=== PATIENT | male | born 1950 | race Caucasian/White ===

== ENCOUNTER 2017-12-30 06:35 | Day surgery (SDC) | payer MEDICARE, BC ==
[2017-12-30] MEDS ORDERED: Sodium Chloride 0.9% 1,000 ML IV SCH (07:15)
[2017-12-30] MEDS ORDERED: fentaNYL 100 MCG/2 ML SDV ONE (07:36)
[2017-12-30] MEDS ORDERED: Propofol 200 MG/20 ML SDV ONE (07:36)
[2017-12-30] MEDS ORDERED: Midazolam 1 MG/ML 2 ML SDV ONE (07:37)
--- NOTE | 2017-12-30 10:50 | PROC ---
DATE OF PROCEDURE: 12/30/2017 INDICATION: Billy is a 67-year-old male who comes in for a colonoscopy. The risks and benefits were explained to the patient, and he was taken to the OR. DESCRIPTION OF PROCEDURE: Anesthesia was given by nurse case preparer and liner. During the procedure, we used 2 versed, 100 fentanyl, and 70 mg of propofol. The Olympus 180 scope was used, was placed in the rectum, and advanced under direct vision. We did evaluate the rectum with a gloved finger. The prostate was a grade 3/6, symmetrical and soft. We advanced the tube and did get to the cecum with minimal difficulty. Upon retraction of the tube, had good observation of all the mucosa. There were no lesions, ulceration, or abnormality noted throughout the entire colon. The tube was removed. The patient tolerated the procedure well. PREOPERATIVE DIAGNOSIS: History of polyps. POSTOPERATIVE DIAGNOSIS: Normal colon from cecum to rectum. RECOMMENDATIONS: Routine screening should be done for this gentleman. Trevor Broussard MD /[id number] MTDD
== END 2017-12-30 09:15 | disposition home or self-care (01) ==
LOC: JP.SDS 06:35
PROVIDERS: ATTEND Internal Medicine
DX: Z12.11 Encounter for screening for malignant neoplasm of colon (principal); I10 Essential (primary) hypertension; E11.9 Type 2 diabetes mellitus without complications; E78.00 Pure hypercholesterolemia, unspecified; K21.9 Gastro-esophageal reflux disease without esophagitis; K58.9 Irritable bowel syndrome, unspecified; Z86.010 Personal history of colon polyps
CPT/HCPCS: G0121; J2250; J2704; J3010

== ENCOUNTER 2024-07-06 06:36 | Day surgery (SDC) | payer MEDICARE, BC ==
[2024-07-06] MEDS: Lactated Ringers 1,000 ML IV SCH (06:52)
[2024-07-06] MEDS ORDERED: Propofol 200 MG/20 ML SDV ONE (06:58)
[2024-07-06] MEDS ORDERED: fentaNYL 100 MCG/2 ML SDV ONE (06:58)
== END 2024-07-06 09:06 | disposition home or self-care (01) ==
LOC: JP.SDS 06:36
PROVIDERS: ATTEND Internal Medicine
DX: Z12.11 Encounter for screening for malignant neoplasm of colon (principal); I10 Essential (primary) hypertension; E78.5 Hyperlipidemia, unspecified; K21.9 Gastro-esophageal reflux disease without esophagitis; Z86.0100 Personal history of colon polyps, unspecified; E66.9 Obesity, unspecified
CPT/HCPCS: 00811; 45380; J2704; J3010; J7120